=== PATIENT | male | born 1970 | race Two or more races ===

== ENCOUNTER → 2024-03-03 | Outpatient (CLI) | payer MEDICAID ==
[~2024-03-03] MED LIST: ALBUTEROL SULF 2.5 MG/0.5ML(0.5%) NEB SOLN ONE
--- NOTE | 2024-03-08 14:08 | DVHNC2 ---
Procedure - March 03 2024 Pulmonary function test interpretation 1. no obstructive or restrictive ventilatory defect. 2. No significant bronchodilator response. FEV1 improved by 110 mL. 3. Total lung capacity is within normal limits, 86% of predicted (6.61 L). 4. Diffusion capacity is within normal limits, 99% of predicted. PIYUSH POPE MD Mar 08, 2024 14:08
== END | disposition home or self-care (01) ==
LOC: RT 10:56
PROVIDERS: ATTEND Internal Medicine Pulmonary Disease
DX: R06.00 Dyspnea, unspecified (principal); F17.210 Nicotine dependence, cigarettes, uncomplicated
CPT/HCPCS: 94060; 94727; 94729

== ENCOUNTER 2024-04-05 08:51 | Day surgery (SDC) | payer MEDICAID ==
[2024-03-30 11:37] LABS: Urine Bacteria None Seen /hpf (None Seen)
[2024-03-30 12:01] LABS: Basophils # (auto) 0 10 ^3/uL (0-0.2); Basophils % (auto) 0.5 % (0.0-2.0); Lymphocytes # (auto) 2.2 10 ^3/uL (0.4-5.4); Monocytes # (auto) 0.6 10 ^3/uL (0-1.3); Nucleated Red Blood Cells % 0.2 %
[2024-03-30 12:03] LABS: INR 1.09 (0.9-1.15); Partial Thromboplastin Time 29.3 SEC (24.5-34.5); Prothrombin Time 11.5 sec (9.3-11.8)
[2024-03-30 12:07] LABS: Urine Blood Negative /uL (Negative); Urine Clarity Clear (Clear); Urine Color Yellow (Yellow); Urine Mucus FEW (None Seen); Urine Protein, UAD TRACE (Negative); Urine Specific Gravity 1.024 (1.001-1.035); Urine Squamous Epithelial Cell None Seen /hpf (<5); Urine Urobilinogen Normal (Negative); Urine WBC 1 /hpf (0 - 3); Urine pH 5.5 (5.0-9.0)
[2024-03-30 12:08] LABS: Eosinophils # (auto) 0.2 10 ^3/uL (0-0.8); Eosinophils % (auto) 3.3 % (0.0-7.0); Hematocrit 46.8 % (41.0-53.0); Lymphocytes % (auto) 29.7 % (10.0-50.0); Mean Corpuscular Hemoglobin 34.1 pg (28.0-32.0); Mean Corpuscular Hgb Conc. 34.2 g/dL (32.0-36.0); Mean Corpuscular Volume 99.6 fL (80.0-100.0); Monocytes % (auto) 7.6 % (0.0-12.0); Neutrophils # (auto) 4.3 10 ^3/uL (1.6-8.6); Neutrophils % (auto) 58.9 % (37.0-80.0); Platelet Count (auto) 178 10^3/uL (140-450); Red Blood Cells 4.69 10^6/uL (4.5-5.90); Red Cell Distribution Width 14.5 % (11.8-14.3); White Blood Cell 7.4 10^3/uL (4.4-10.8)
[2024-03-30 12:44] LABS: Alkaline Phosphatase 100 U/L (46-116); Anion Gap 6 (5-15); BUN/Creatinine Ratio 13.5 (10.0-20.0); Blood Urea Nitrogen 12 mg/dL (9-23); Calcium 10.1 mg/dL (8.7-10.4); Carbon Dioxide 30 mmol/L (20-31); Chloride 105 mmol/L (98-107); Sodium 141 mmol/L (136-145)
[2024-03-30 12:45] LABS: Albumin 4.3 g/dL (3.2-4.8); Aspartate Aminotransferase 29 U/L (13-40); Bilirubin, Total 0.6 mg/dL (0.2-1.0); Total Protein 7.2 g/dL (5.7-8.2)
[2024-03-30 12:46] LABS: Alanine Aminotransferase 45 U/L (7-40); Glucose 143 mg/dL (74-106)
[~2024-04-05] VITALS: Ht 188 cm; Wt 149.7 kg
[2024-04-05] MEDS ORDERED: PHENYLEPHRINE HCL 10 MG/ML VL IV ONE (08:52)
[2024-04-05] MEDS ORDERED: BUPIVACAINE HCL 50 ML ONE (09:33)
[2024-04-05] MEDS ORDERED: BUPIVACAINE 0.25% INJ 50ML VIAL ONE (09:33)
[2024-04-05] MEDS ORDERED: DexAMETHasone SOD PHOS 4 MG/1ML SDV INJ ONE (09:33)
[2024-04-05 10:05] VITALS: TEMP 97.7
[2024-04-05] MEDS ORDERED: ceFAZolin 2 GM/D5W100ml 100 ML IV ONE (10:09)
[2024-04-05] MEDS ORDERED: KETOROLAC TROMETH 30 MG/ML 1ML VIAL ONE (11:22)
[2024-04-05] MEDS ORDERED: PROPOFOL 10 MG/ML 20 ML IV ONE ×2 (11:22→12:32)
[2024-04-05] MEDS ORDERED: LIDOCAINE 1% INJ PF 5ML AMP ONE ×2 (11:22→12:32)
[2024-04-05] MEDS ORDERED: ONDANSETRON HCL 4 MG/2 ML VIAL ONE (11:22)
[2024-04-05] MEDS ORDERED: GLYCOPYRROLATE 0.2 MG/ML 1ML VIAL ONE (11:22)
[2024-04-05] MEDS ORDERED: DexAMETHasone SOD PHOS 10MG/1ML VIAL INJ ONE ×2 (11:22→13:50)
[2024-04-05] MEDS ORDERED: EPINEPHrine HCL 1 MG/1 ML AMP ONE (11:23)
[2024-04-05] MEDS ORDERED: BUPIVACAINE 0.5% P/F INJ 10 ML VIAL ONE (11:54)
[2024-04-05] MEDS ORDERED: CELECOXIB 100 MG CAP ONE (12:04)
[2024-04-05] MEDS ORDERED: GABAPENTIN 400 MG CAP ONE (12:04)
[2024-04-05] MEDS ORDERED: ACETAMINOPHEN IV 100 ML IV ONE (12:05)
[2024-04-05] MEDS ORDERED: ACETAMINOPHEN IV 1000 MG/100ML (10MG/ML) IV ONE (12:15)
[2024-04-05] MEDS ORDERED: CELECOXIB 100 MG CAP PO ONE (12:15)
[2024-04-05] MEDS ORDERED: GABAPENTIN 400 MG CAP PO ONE (12:15)
[2024-04-05] MEDS ORDERED: ceFAZolin 1GM VL ONE (12:34)
[2024-04-05] MEDS ORDERED: fentaNYL CITRATE 100 MCG/2 ML VL ONE (13:16)
[2024-04-05] MEDS ORDERED: ESMOLOL HCL 10 ML IV ONE (14:41)
[2024-04-05 15:43] VITALS: PULSE 109; RESP 11; O2SAT 93
--- NOTE | 2024-04-05 15:45 | DVHOP2 ---
Operative Report - 2 Report Details Date: 04/05/24 Preop Diagnosis: 1. Right ankle fracture malunion 2. Right ankle fracture nonunion 3. Right ankle deformity 4. Right ankle pain Postop Diagnosis: Right foot ankle fracture malunion Surgeon: Shahab Senior MD Anesthesiologist: See anesthesia Anesthesia: General Implant: Arthrex fibula locking plate with the accompanying screws Arthrex syndesmosis tight rope x3 Consent: The patient was informed of the risks and benefits of the procedure. These include but are not limited to complications of anesthesia, postoperative infection, incomplete relief of symptoms, recurrence of symptoms, damage to blood vessels, nerves and tendons, deep venous thrombosis, pulmonary embolism and possible need for repeat surgery in the future. Complications: None Estimated Blood Loss: Minimal Fluids: See anesthesia Findings: There was significant scarring and ossifications of the syndesmosis. There was shortening of the fibula. There was significant gapping of the medial gutter. Indications for Surgery: Worsening right ankle pain Name of Procedure Performed 1. Right ankle hardware removal 2. Right ankle fibular ORIF 3. Right ankle fibula lengthening 4. Right ankle deltoid repair 5. Right ankle syndesmosis repair 6. Right ankle arthrotomy Procedure Details Procedure Details: PRE-PROCEDURE INFORMATION: In the pre-op holding area, the extremity to be operated on was clearly marked and the patient verified correct laterality of the marking. The patient was transferred to the OR table and placed in a supine position. A time out was performed in which identification of the correct patient, procedure, location, and materials was done. The right foot and leg were prepped and draped in normal sterile fashion. The foot and leg were exsanguinated and the thigh tourniquet was inflated to 250 mmHg. DESCRIPTION OF PROCEDURE: Attention was directed to the right lateral leg with a fibula fracture and previous plate and screws was located. A linear longitudinal incision was made on the lateral leg. This incision was deepened with sharp and blunt dissection to the level of the periosteum. Care was taken throughout the dissection to avoid damage to the neurovascular structures in the peroneal tendons. A periosteal elevator was used to reflect all the soft tissue and periosteum from the bone in the fracture fragment. The previous plate and fracture was visualized and any unwanted debris was removed from the fracture. The 1/3 tubular plate as well as accompanying screws were then removed in its en tirety. It was noted that there was significant deformity with shortening of the fibula. Utilizing standard open reduction techniques, the fibular fracture was adequately reduced once temporary fixated with a bone reduction forceps. It was noted that due to the significant shortening of the fibula, there was some valgus tilt in the talus. Using a 1 in fibular graft, a fibular lengthening was performed. The bone block was then placed with DBM to allow for lengthening of the fibula and decrease some of the valgus tilting of the talus. A locking plate with accompanying screws were then placed in the lateral fibula for permanent internal fixation. There was then noted on intraoperative fluoroscopy that there was significant gapping between the fibula and tibia at the level of the syndesmosis as well as the medial gutter. Using a solid drill, 3 Arthrex tight ropes were then placed across the fibula from the locking plate into the tibia. It was then noted on the lateral talar dome there was a 7 x 7 mm osteochondral defect. A small microfracture was then performed with an osteotome and a curette to remove any of the loosening border. It was noted in the intraoperative fluoroscopy the adequate reduction of the deformity was obtained as well as adequate lengthening of the fibula back to its original length. All hardware was adequately placed verified on fluoroscopy as well. Attention was directed to the right medial ankle where a curvilinear longitudinal incision was made over the medial malleolus. This incision was deepened through blunt and sharp dissection to the level to the level of the deltoid ligament. Care was taken throughout the dissection to avoid damage to any neurovascular structures. An arthrotomy of the ankle joint was performed revealing normal-appearing joint fluid. It was noted at that time that the deltoid ligament was attenuated need repair. The talar dome was inspected and noted to be free of osteochondral lesions on the medial side. Utilizing a periosteal elevator, the periosteum of the medial malleolus was reflected in preparation for the placement of the soft tissue anchors. A soft tissue anchor was then placed anterior and slightly posterior on the medial malleolus. The knotless fibertak anchors were then used to recreate the deltoid ligament. The capsule was then oversewn with 2-0 Vicryl. The wound was irrigated copiously with normal saline and closed in layers. The incisions were then closed with 2- 0 Vicryl, 3-0 Monocryl and 4-0 nylon. All surgical wounds were irrigated copiously with saline and closed in layers with the aforementioned suture material. A dry sterile dressing was placed on the surgical extremity. The patient was placed in a cam boot POSTOPERATIVE INFORMATION: The patient tolerated the above noted procedure and anesthesia well and was transferred to the PACU with vital signs stable, and vascular status intact with capillary refill intact to all digits. Postoperative instructions reviewed in detail with the patient with written instructions provided. Patient will return to clinic in approximately 10-14 days for first postoperative visit. Patient has the number of the clinic and was instructed to call prior to that time should any problems, questions, or concerns arise. Condition Good Disposition Home SHAHAB SENIOR DPM Apr 05, 2024 15:45
[2024-04-05] MEDS ORDERED: ePHEDrine SULFATE 50 MG/ML AMP IV PRN (16:00)
[2024-04-05] MEDS ORDERED: hydrALAZINE HCL 20 MG/ML VL IV PRN (16:00)
[2024-04-05] MEDS ORDERED: ONDANSETRON HCL 4 MG/2 ML VIAL IV PRN (16:00)
[2024-04-05] MEDS ORDERED: fentaNYL CITRATE 100 MCG/2 ML VL IV PRN (16:00)
[2024-04-05] MEDS ORDERED: FLUMAZENIL 0.1 MG/ML INJ 10ML MDV IV PRN (16:00)
[2024-04-05] MEDS ORDERED: HYDROmorphone HCL 2 MG/ML VL/or syr ONE (16:00)
[2024-04-05] MEDS ORDERED: NALOXONE HCL 0.4 MG/ML VIAL IV PRN (16:00)
[2024-04-05] MEDS: HYDROmorphone HCL 2 MG/ML VL/or syr IV PRN (16:01)
[2024-04-05] MEDS: oxyCODONE HCL 5MG TAB PO PRN (16:08)
[2024-04-05 17:00] VITALS: BP 100/67; PULSE 87; RESP 18; O2SAT 97
--- NOTE | 2024-04-05 18:41 | DVH ---
C-ARM FLUOROSCOPY: PROCEDURE: Right foot ORIF FLUOROSCOPY TIME: 55.2 seconds DAP: 1.49 mgy FINDINGS: Spot intraoperative C arm radiographs demonstrating right foot ORIF. IMPRESSION: Please refer to surgical report for detailed findings.
== END 2024-04-15 17:53 | disposition home or self-care (01) ==
LOC: SUR 08:51
PROVIDERS: ATTEND Podiatrist
DX: S82.891A Other fracture of right lower leg, initial encounter for closed fracture (principal); X58.XXXA Exposure to other specified factors, initial encounter; Y93.89 Activity, other specified; Y92.89 Other specified places as the place of occurrence of the external cause; Y99.8 Other external cause status; M24.271 Disorder of ligament, right ankle; M25.571 Pain in right ankle and joints of right foot; I10 Essential (primary) hypertension; E11.9 Type 2 diabetes mellitus without complications; E66.01 Morbid (severe) obesity due to excess calories; Z68.41 Body mass index [BMI] 40.0-44.9, adult; Z79.899 Other long term (current) drug therapy; Z98.890 Other specified postprocedural states; Z87.891 Personal history of nicotine dependence
CPT/HCPCS: 27695; 27792; 27829; 36415; 64445; 64447; 73620; 80053; 81001; 82962; 85025; 85610; 85730; C1713; J0171; J0690; J1100; J1171; J1885; J2371; J2405; J2704; J3490; 76000; J0131